=== PATIENT | female | born 1990 | race African-American/Black ===

== ENCOUNTER 2018-05-25 14:32 | Emergency (ER) | payer MEDICAID, OTHER ==
--- NOTE | 2018-05-25 15:53 | EDPHYS ---
Physician Documentation [facility] Name: Mackenzie Jordan Age: 28 yrs Sex: Female : 1990 Arrival Date: 05/25/2018 Time: 14:37 Bed 12 Private MD: ED Physician Massimo Samuels HPI: 05/25 15:54 This 28 yrs old Black Female presents to ER via Ambulatory with complaints of Foreign kb Body In Throat. 15:57 The patient or guardian reports the patient has a suspected foreign body, of the kb throat. The reported likely foreign body is an insect. Onset: The symptoms/episode began/occurred 3 day(s) ago. Current symptoms: foreign body sensation. Treatment Prior to Arrival: tried to flush. The patient has not experienced similar symptoms in the past. The patient has not recently seen a physician. Pt states she was drinking water 3 days ago and swallowed a bug. States she still feels it in her throat. States she did a finger sweep and scratched the back so she is having pain with swallowing, but is able to tolerate PO intake. Historical: - Allergies: 14:54 No Known Allergies; hb - Home Meds: 14:54 None [Active]; hb - PMHx: 14:54 None; hb - PSHx: 14:54 ; hb - Immunization history:: Adult Immunizations up to date. - Social history:: Smoking status: Patient/guardian denies using tobacco. - Ebola Screening: : No symptoms or risks identified at this time. ROS: 15:54 Constitutional: Negative for fever, chills, and weight loss, Neck: Negative for injury, kb pain, and swelling, Cardiovascular: Negative for chest pain, palpitations, and edema, Respiratory: Negative for shortness of breath, cough, wheezing, and pleuritic chest pain, Abdomen/GI: Negative for abdominal pain, nausea, vomiting, diarrhea, and constipation, MS/Extremity: Negative for injury and deformity, Skin: Negative for injury, rash, and discoloration, Neuro: Negative for headache, weakness, numbness, tingling, and seizure. 15:54 ENT: Positive for foreign body sensation. Exam: 15:54 Constitutional: This is a well developed, well nourished patient who is awake, alert, kb and in no acute distress. Head/Face: Normocephalic, atraumatic. ENT: Nares patent. No nasal discharge, no septal abnormalities noted. Tympanic membranes are normal and external auditory canals are clear. Oropharynx with no redness, swelling, or masses, exudates, or evidence of obstruction, uvula midline. Mucous membranes moist. Neck: Trachea midline, no thyromegaly or masses palpated, and no cervical lymphadenopathy. Supple, full range of motion without nuchal rigidity, or vertebral point tenderness. No Meningismus. Chest/axilla: Normal chest wall appearance and motion. Nontender with no deformity. No lesions are appreciated. Cardiovascular: Regular rate and rhythm with a normal S1 and S2. No gallops, murmurs, or rubs. Normal PMI, no JVD. No pulse deficits. Respiratory: Lungs have equal breath sounds bilaterally, clear to auscultation and percussion. No rales, rhonchi or wheezes noted. No increased work of breathing, no retractions or nasal flaring. Abdomen/GI: Soft, non-tender, with normal bowel sounds. No distension or tympany. No guarding or rebound. No evidence of tenderness throughout. Back: No spinal tenderness. No costovertebral tenderness. Full range of motion. Skin: Warm, dry with normal turgor. Normal color with no rashes, no lesions, and no evidence of cellulitis. MS/ Extremity: Pulses equal, no cyanosis. Neurovascular intact. Full, normal range of motion. Neuro: Awake and alert, GCS 15, oriented to person, place, time, and situation. Cranial nerves II-XII grossly intact. Motor strength 5/5 in all extremities. Sensory grossly intact. Cerebellar exam normal. Normal gait. Vital Signs: 14:53 BP 137 / 106; Pulse 100; Resp 16; Temp 98.1; Pulse Ox 98% on R/A; Weight 47.63 kg (R); hb Height 4 ft. 10 in. (147.32 cm); Pain 10/10; 14:53 Body Mass Index 21.95 (47.63 kg, 147.32 cm) hb MDM: 15:32 Patient medically screened. kb 15:53 Data reviewed: vital signs, nurses notes. Data interpreted: Pulse oximetry: on room air kb is 98 %. Interpretation: normal. 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 Administered Medications: No medications were administered Disposition: 16:07 Co-signature as Attending Physician, Massimo Samuels MD I agree with the assessment and kdr plan of care. Disposition: 05/25/18 15:53 Discharged to Home. Impression: Foreign body in esophagus. - Condition is Stable. - Discharge Instructions: Swallowed Foreign Body, Adult, [id number]. - Medication Reconciliation Form, Thank You Letter, Antibiotic Education, Prescription Opioid Use form. - Follow up: Emergency Department; When: As needed; Reason: Worsening of condition. Follow up: Private Physician; When: 2 - 3 days; Reason: Recheck today's complaints, Continuance of care, Re-evaluation by your physician. Signatures: Connie Rubi, IDENTIFIER HORSE-C IDENTIFIER HORSE-Melvinb Massimo Samuels MD MD [facility] Jody Bettencourt RN RN hb Corrections: (The following items were deleted from the chart) 16:04 15:53 05/25/2018 15:53 Discharged to Home. Impression: Foreign body in esophagus. hb Condition is Stable. Forms are Medication Reconciliation Form, Thank You Letter, Antibiotic Education, Prescription Opioid Use. Follow up: Emergency Department; When: As needed; Reason: Worsening of condition. Follow up: Private Physician; When: 2 - 3 days; Reason: Recheck today's complaints, Continuance of care, Re-evaluation by your physician. kb
--- NOTE | 2018-05-25 15:53 | ER ---
Nurse's Notes [facility] Name: Mackenzie Jordan Age: 28 yrs Sex: Female : 1990 Arrival Date: 05/25/2018 Time: 14:37 Bed 12 Private MD: Diagnosis: Foreign body in esophagus Presentation: 05/25 14:52 Presenting complaint: Patient states: "I felt a bug fly into my throat a few days ago, hb I tried to sweep it out but I can't get to it.". Transition of care: patient was not received from another setting of care. Onset of symptoms was May 23, 2018. Risk Assessment: Do you want to hurt yourself or someone else? Patient reports no desire to harm self or others. Care prior to arrival: None. 14:52 Method Of Arrival: Ambulatory 14:52 Acuity: TREY 3 hb 16:01 Initial Sepsis Screen: Does the patient meet any 2 criteria? No. Patient's initial hb sepsis screen is negative. Does the patient have a suspected source of infection? No. Patient's initial sepsis screen is negative. Historical: - Allergies: 14:54 No Known Allergies; hb - Home Meds: 14:54 None [Active]; hb - PMHx: 14:54 None; hb - PSHx: 14:54 ; hb - Immunization history:: Adult Immunizations up to date. - Social history:: Smoking status: Patient/guardian denies using tobacco. - Ebola Screening: : No symptoms or risks identified at this time. Screenin:55 Abuse screen: Denies threats or abuse. Denies injuries from another. Nutritional hb screening: No deficits noted. Tuberculosis screening: No symptoms or risk factors identified. Fall Risk None identified. Assessment: 14:55 General: Appears in no apparent distress. Behavior is calm, cooperative. Pain: Pain hb currently is 10 out of 10 on a pain scale. Neuro: Level of Consciousness is awake, alert, obeys commands, Oriented to person, place, time, situation. Cardiovascular: Capillary refill < 3 seconds Patient's skin is warm and dry. Respiratory: Airway is patent Respiratory effort is even, unlabored, Respiratory pattern is regular, symmetrical, Breath sounds are clear bilaterally. GI: No signs and/or symptoms were reported involving the gastrointestinal system. : No signs and/or symptoms were reported regarding the genitourinary system. EENT: No signs and/or symptoms were reported regarding the EENT system. Derm: Skin is intact, is healthy with good turgor. Musculoskeletal: No signs and/or symptoms reported regarding the musculoskeletal system. Vital Signs: 14:53 BP 137 / 106; Pulse 100; Resp 16; Temp 98.1; Pulse Ox 98% on R/A; Weight 47.63 kg (R); hb Height 4 ft. 10 in. (147.32 cm); Pain 10/10; 14:53 Body Mass Index 21.95 (47.63 kg, 147.32 cm) hb ED Course: 14:37 Patient arrived in ED. mr 14:53 Triage completed. hb 14:54 Arm band placed on. hb 14:55 Patient has correct armband on for positive identification. Call light in reach. hb 15:23 Connie Rub[facility]-C [facility]. kb 15:23 Massimo Samuels MD is Attending Physician. kb 16:00 No provider procedures requiring assistance completed. Patient did not have IV access hb during this emergency room visit. Administered Medications: No medications were administered Outcome: 15:53 Discharge ordered by . kb 16:00 Discharged to home ambulatory. hb 16:00 Condition: stable 16:00 Discharge instructions given to patient, Instructed on discharge instructions, follow up and referral plans. Demonstrated understanding of instructions, follow-up care. 16:04 Patient left the ED. hb Signatures: Connie Rubi FNP-C FNP-Ckb Riverted Patricia Jody Bettencourt RN RN hb Corrections: (The following items were deleted from the chart) 15:59 14:53 BP 137 / 106; Pulse 100bpm; Resp 16bpm; Pulse Ox 98.4%; Temp 98.1F; 47.63 kg hb Reported; Height 4 ft. 10 in.; BMI: 21.9; Pain 10/10; hb
== END 2018-05-25 16:04 | disposition home or self-care (01) ==
LOC: ER 14:32
DX: T18.108A Unspecified foreign body in esophagus causing other injury, initial encounter (principal)
CPT/HCPCS: 99281

== ENCOUNTER 2018-11-17 11:10 | Emergency (ER) | payer MEDICAID ==
--- OUTSIDE RECORDS SUMMARY | 2018-11-17 11:13 | XMS REPORT ---
:1990 [facility] [address] [place] [address] Care Team Providers Name Role Phone Unavailable Unavailable Unavailable Problems This patient has no known problems. Allergies, Adverse Reactions, Alerts This patient has no known allergies or adverse reactions. Medications This patient has no known medications.
[2018-11-17 12:21] LABS: Urine Blood NEGATIVE (NEG); Urine Glucose NEGATIVE (NEG); Urine Protein 1+ (NEG); Urine pH 6.5 (5.0-7.0)
[2018-11-17 12:25] LABS: Absolute Lymphocytes (CBC) 2.1 K/uL (0.7-4.9); Basophils % 0.4 % (0-1.3); Hematocrit 33.2 % (36.0-45.0); Lymphocytes % 27.3 % (15.3-44.8); MPV 8.8 fL (7.6-11.3); RBC Red Blood Cell Count 3.37 M/uL (3.86-4.86)
[2018-11-17 12:27] LABS: Protime INR 0.99
[2018-11-17 12:43] LABS: ALT/SGPT 16 U/L (12-78); AST/SGOT 15 U/L (15-37); Alkaline Phosphatase 83 U/L (45-117); BUN Blood Urea Nitrogen 5 mg/dL (7-18); Bicarbonate 23 mmol/L (21-32); Bilirubin Direct < 0.1 mg/dL (0-0.2); Bilirubin Total 0.2 mg/dL (0.2-1.0); Glucose Level 84 mg/dL (74-106); NT PRO-BNP 44 pg/mL (<125); Potassium 3.7 mmol/L (3.5-5.1); Protein, Total 7.4 g/dL (6.4-8.2); Sodium Level 136 mmol/L (136-145); Troponin (Emerg Dept Use Only) < 0.02 ng/mL (0.0-0.045)
--- NOTE | 2018-11-17 13:20 | ER ---
Nurse's Notes [facility] Name: Mackenzie Jordan Age: 28 yrs Sex: Female : 1990 Arrival Date: 11/17/2018 Time: 11:12 Bed 18 Private MD: Diagnosis: Palpitations Presentation: 11/17 11:21 Presenting complaint: Patient states: "I woke up and I was trying to sneak a cigarette aj1 and after that I started feeling funny, like weird. My heart was racing, I felt hot." Reports that symptoms started approximately 1 hour ago. Patient reports that she is 7 months , denies abdominal pain, denies vaginal bleeding. Transition of care: patient was not received from another setting of care. Onset of symptoms was November 17, 2018 at 10:20. Risk Assessment: Do you want to hurt yourself or someone else? Patient reports no desire to harm self or others. Initial Sepsis Screen: Does the patient meet any 2 criteria? No. Patient's initial sepsis screen is negative. Does the patient have a suspected source of infection? No. Patient's initial sepsis screen is negative. Care prior to arrival: None. 11:21 Method Of Arrival: Ambulatory aj1 11:21 Acuity: TREY 3 aj1 Triage Assessment: 11:22 General: Appears in no apparent distress. comfortable, Behavior is calm, cooperative, aj1 appropriate for age. Pain: Denies pain. Neuro: Level of Consciousness is awake, alert, obeys commands, Oriented to person, place, time, situation. Cardiovascular: Patient's skin is warm and dry. Respiratory: Airway is patent Respiratory effort is even, unlabored, Respiratory pattern is regular, symmetrical. 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 - Social history:: Smoking status: Patient uses tobacco products, denies chronic smoking, but will smoke occasionally. - Ebola Screening: : Patient denies travel to an Ebola-affected area in the 21 days before illness onset. Screenin:50 Abuse screen: Denies threats or abuse. Nutritional screening: No deficits noted. em Tuberculosis screening: No symptoms or risk factors identified. Fall Risk None identified. Assessment: 11:50 General: Appears in no apparent distress. comfortable, Behavior is calm, cooperative, em Denies fever, reports smoking several cigarettes a day and today smoked one that made her have palpitation and feel dizzy. Pain: Denies pain. Neuro: Level of Consciousness is awake, alert, obeys commands, Oriented to person, place, time, situation, Moves all extremities. Speech is normal. Cardiovascular: Reports palpitations, Denies chest pain, shortness of breath, Capillary refill < 3 seconds Patient's skin is warm and dry. Respiratory: Airway is patent Respiratory effort is even, unlabored, Respiratory pattern is regular, symmetrical, Breath sounds are clear bilaterally. GI: Patient currently denies nausea, vomiting. : Denies burning with urination, discharge, vaginal bleeding. Derm: Skin is intact, is healthy with good turgor, Skin is pink, warm \\T\\ dry. Musculoskeletal: Capillary refill < 3 seconds, Range of motion: intact in all extremities. 11:50 Reassessment: I agree with assessment completed by EVERARDO Pierson aa5 12:45 Reassessment: Entered patient's room to do heart tones. Patient states "I don't aj1 know why yall are trying to do all this. I told you its not the baby" Explained procedure to patient, that it is quick and painless and lets us check on her baby. Patient refused heart tones at this time. Notified KORI Arriola. 13:53 Reassessment: Patient appears in no apparent distress at this time. Patient and/or em family updated on plan of care and expected duration. Pain level reassessed. Patient is alert, oriented x 3, equal unlabored respirations, skin warm/dry/pink. Patient denies pain at this time. Patient states feeling better. Patient states symptoms have improved. Vital Signs: 11:22 BP 131 / 84; Pulse 86; Resp 18; Temp 98.3; Pulse Ox 100% on R/A; Weight 52.16 kg (R); aj1 Height 4 ft. 11 in. (149.86 cm) (R); Pain 0/10; 12:45 BP 124 / 78; Pulse 74; Resp 16; Pulse Ox 99% on R/A; em 11:22 Body Mass Index 23.23 (52.16 kg, 149.86 cm) 1 ED Course: 11:12 Patient arrived in ED. as 11:22 Triage completed. aj1 11:35 Dwight Clark LVN is Primary Nurse. em 11:39 Daryl Hill PA is PHCP. [facility] 11:39 Franklin Mejia MD is Attending Physician. m 11:45 Patient has correct armband on for positive identification. Bed in low position. Call em light in reach. Adult w/ patient. panel monitor on. Pulse ox on. NIBP on. 13:05 XRAY Chest (1 view) In Process Unspecified. EDMS 13:46 No provider procedures requiring assistance completed. IV discontinued, intact, em bleeding controlled, No redness/swelling at site. Pressure dressing applied. Administered Medications: No medications were administered Outcome: 13:19 Discharge ordered by MD. [facility] 13:56 Discharged to home ambulatory, with family. em 13:56 Condition: good 13:56 Discharge instructions given to patient, family, Instructed on discharge instructions, follow up and referral plans. Demonstrated understanding of instructions, follow-up care. 13:57 Patient left the ED. em Signatures: Dispatcher [employer] EDMS aJyleen Mcintosh, RN RN aj1 Daryl Hill PA PA [facility] Dwight Clark LVN NATIONAL ACCOUNTS RECRUITER em Aliyah Marsh Audri, RN RN aa5 Corrections: (The following items were deleted from the chart) 11:24 11:21 Presenting complaint: Patient states: "I woke up and I was trying to sneak a aj1 cigarette and after that I started feeling funny, like weird. My heart was racing, I felt hot." Reports that symptoms started approximately 1 hour ago aj1
--- NOTE | 2018-11-17 13:21 | EDPHYS ---
Physician Documentation [facility] Name: Mackenzie Jordan Age: 28 yrs Sex: Female : 1990 Arrival Date: 11/17/2018 Time: 11:12 Bed 18 Private MD: ED Physician Franklin Mejia HPI: 11/17 11:40 This 28 yrs old Black Female presents to ER via Ambulatory with complaints of jmm Palpitations, Dizziness. 11:40 The patient presents with a history of heart racing. Onset: The symptoms/episode jmm began/occurred acutely, just prior to arrival. Duration: The patient or guardian reports a single episode, that is now resolved. Modifying factors: The symptoms are aggravated by The symptoms are alleviated by nothing. This is a female with no chronic medical conditions currently 7 mo IUP that presents to the ED with complaints of palpitations and weakness beginning earlier today after smoking a cigarrette. Patient denies fever, denies chest pain. Denies abdominal pain, denies vaginal bleeding, denies vaginal discharge. . 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 - Social history:: Smoking status: Patient uses tobacco products, denies chronic smoking, but will smoke occasionally. - Ebola Screening: : Patient denies travel to an Ebola-affected area in the 21 days before illness onset. ROS: 11:40 Constitutional: Negative for fever, chills, and weight loss. jmm 11:40 Respiratory: Negative for shortness of breath, cough, wheezing, and pleuritic chest pain, Abdomen/GI: Negative for abdominal pain, nausea, vomiting, diarrhea, and constipation. 11:40 Cardiovascular: Positive for palpitations. 11:40 Neuro: Positive for dizziness, weakness. 11:40 All other systems are negative. Exam: 11:40 Constitutional: This is a well developed, well nourished patient who is awake, alert, jmm and in no acute distress. Head/Face: atraumatic. Eyes: EOMI, no conjunctival erythema appreciated ENT: Moist Mucus Membranes Neck: Trachea midline, Supple Chest/axilla: Normal chest wall appearance and motion. 11:40 Abdomen/GI: Non distended, soft Back: Normal ROM Skin: General appearance color normal MS/ Extremity: Moves all extremities, no obvious deformities appreciated, no edema noted to the lower extremities Neuro: Awake and alert, normal gait Psych: Behavior is normal, Mood is normal, Patient is cooperative and pleasant 11:40 Cardiovascular: Rate: normal, Rhythm: regular, Pulses: no pulse deficits are appreciated. 11:40 Respiratory: the patient does not display signs of respiratory distress, Respirations: normal, Breath sounds: are clear throughout. 11:40 Musculoskeletal/extremity: ROM: intact in all extremities, DVT Exam: no pain, no swelling, no tenderness, negative Homans' sign noted on exam, no appreciated bluish discoloration, no erythema, no increased warmth. Vital Signs: 11:22 BP 131 / 84; Pulse 86; Resp 18; Temp 98.3; Pulse Ox 100% on R/A; Weight 52.16 kg (R); aj1 Height 4 ft. 11 in. (149.86 cm) (R); Pain 0/10; 12:45 BP 124 / 78; Pulse 74; Resp 16; Pulse Ox 99% on R/A; em 11:22 Body Mass Index 23.23 (52.16 kg, 149.86 cm) aj1 MDM: 11:40 Patient medically screened. lorena 13:19 Data reviewed: vital signs, nurses notes. Counseling: I had a detailed discussion with jmm the patient and/or guardian regarding: the historical points, exam findings, and any diagnostic results supporting the discharge/admit diagnosis, the need for outpatient follow up, to return to the emergency department if symptoms worsen or persist or if there are any questions or concerns that arise at home. 13:19 ED course: Patient is alert and non toxic in appearance. VS normal. I do not suspect PE jmm or DVT. Labs unremarkable. Bedside US revealed movement. Patient advised to follow up with OB for reevaluation and otherwise given strict return precautions. Patient understood and agrees with the plan of care. . 11/17 11:48 Order name: Urine Dipstick--Ancillary (enter results); Complete Time: 12:44 eb 11/17 11:48 Order name: Urine --Ancillary (enter results); Complete Time: 12:44 11/17 11:53 Order name: Basic Metabolic Panel; Complete Time: 12:44 [facility] 11/17 11:53 Order name: CBC with Diff; Complete Time: 12:44 [facility] 11/17 11:53 Order name: LFT's; Complete Time: 12:44 [facility] 11/17 11:53 Order name: Magnesium; Complete Time: 12:44 [facility] 11/17 11:53 Order name: NT PRO-BNP; Complete Time: 12:44 [facility] 11/17 11:53 Order name: PT-INR; Complete Time: 12:44 [facility] 11/17 11:53 Order name: Troponin (emerg Dept Use Only); Complete Time: 12:44 [facility] 11/17 11:53 Order name: XRAY Chest (1 view); Complete Time: 13:26 [facility] 11/17 11:53 Order name: EKG; Complete Time: 11:54 [facility] 11/17 11:53 Order name: Cardiac monitoring; Complete Time: 12:50 [facility] 11/17 11:53 Order name: EKG - Nurse/Tech; Complete Time: 12:50 [facility] 11/17 11:53 Order name: IV Saline Lock; Complete Time: 12:50 [facility] 11/17 11:53 Order name: Labs collected and sent; Complete Time: 12:50 [facility] 11/17 11:53 Order name: O2 Per Protocol; Complete Time: 12:50 [facility] 11/17 11:53 Order name: O2 Sat Monitoring; Complete Time: 12:50 [facility] Administered Medications: No medications were administered Disposition: 11/18 11:20 Co-signature as Attending Physician, Franklin Mejia MD I agree with the assessment and doctors hospital plan of care. Disposition: 11/17/18 13:19 Discharged to Home. Impression: Palpitations. - Condition is Stable. - Discharge Instructions: Palpitations. - Medication Reconciliation Form, Thank You Letter, Antibiotic Education, Prescription Opioid Use form. - Follow up: Private Physician; When: 2 - 3 days; Reason: Recheck today's complaints, Continuance of care, Re-evaluation by your physician. Signatures: Dispatcher [facility] Jayleen Kennedy RN RN ajFranklin Aquino MD MD cha Mickail, Joel, PA PA Dwight Valera, KENNEL HELPER KENNEL HELPER em Corrections: (The following items were deleted from the chart) 11/17 12:49 11:58 FHT's ordered. aneta aj1 13:57 13:19 11/17/2018 13:19 Discharged to Home. Impression: Palpitations. Condition is em Stable. Forms are Medication Reconciliation Form, Thank You Letter, Antibiotic Education, Prescription Opioid Use. Follow up: Private Physician; When: 2 - 3 days; Reason: Recheck today's complaints, Continuance of care, Re-evaluation by your physician. aneta
--- NOTE | 2018-11-17 13:23 | RAD REPORT ---
EXAM DESCRIPTION: El Single View11/17/2018 1:04 pm CLINICAL HISTORY: Palpitations COMPARISON: none FINDINGS: The lungs appear clear of acute infiltrate. The heart is normal size IMPRESSION: No acute abnormalities displayed
--- NOTE | 2018-11-18 06:30 | EKG ---
Test Date: 2018-11-17 Test Time: 12:08:11 Retail Assistant: ANA MEASUREMENT RESULTS: Intervals: Rate: 85 [place]: 148 QRSD: 72 QT: 356 QTc: 423 Luckey: P: 36 [place]: 148 QRS: 32 T: 25 INTERPRETIVE STATEMENTS: Normal sinus rhythm Normal ECG No previous ECG available for comparison Electronically Signed On 11-18-18 06:28:57 CDT by Favian Bravo
== END 2018-11-17 13:57 | disposition home or self-care (01) ==
LOC: ER 11:10
DX: O26.892 Other specified pregnancy related conditions, second trimester (principal); R00.2 Palpitations; O99.332 Smoking (tobacco) complicating pregnancy, second trimester; Z3A.28 28 weeks gestation of pregnancy
CPT/HCPCS: 36415; 71045; 80048; 80076; 81003; 81025; 83735; 83880; 84484; 85025; 85610; 93005; 99284

== ENCOUNTER 2019-01-21 02:58 | Inpatient (IN) | payer MEDICAID, OTHER ==
[2019-01-21] MEDS ORDERED: Ringers Lactate 1,000 ML IV PRN (04:22)
[2019-01-21] MEDS ORDERED: NA CIT/CITRIC AC 30 ML ORAL UDC PO ONE ×2 (04:51→05:06)
[2019-01-21] MEDS ORDERED: FAMOTIDINE 20 MG/2 ML VIAL IV ONE ×3 (04:53→05:07)
[2019-01-21] MEDS ORDERED: METOCLOPRAMIDE 10 MG/2mL INJ IV ONE (04:54)
[2019-01-21 04:56] VITALS: BMI 25.2
[2019-01-21] MEDS ORDERED: Ringers Lactate 1,000 ML IV SCH (05:00)
[2019-01-21] MEDS ORDERED: CEFAZOLIN 2 GM in NA CHLORIDE 0.9% 100 ML IVPB SCH ×2 (05:00→06:00)
[2019-01-21 05:04] LABS: Urine Appearance CLOUDY; Urine Bilirubin NEGATIVE (NEG); Urine Blood 3+ (NEG); Urine Color YELLOW; Urine Glucose NEGATIVE (NEG); Urine Protein 1+ (NEG); Urine pH 6.5 (5.0-7.0)
[2019-01-21 05:05] LABS: Basophils % 0.3 % (0-1.3); Hematocrit 32.5 % (36.0-45.0); Lymphocytes % 18.8 % (15.3-44.8); RBC Red Blood Cell Count 3.35 M/uL (3.86-4.86)
[2019-01-21 05:06] LABS: Urine Microscopic Reflex ORDER UMIC
[2019-01-21] MEDS ORDERED: CEFAZOLIN/SWI 2gm 2 GM/20 ML SYR ONE (05:06)
[2019-01-21] MEDS ORDERED: NA CIT/CITRIC AC 30 ML ORAL UDC ONE (05:06)
[2019-01-21] MEDS ORDERED: METOCLOPRAMIDE 10 MG/2mL INJ ONE (05:06)
[2019-01-21] MEDS ORDERED: MORPHINE SULFATE/PF 1 MG/ML (10 ML AMP) ONE (05:17)
[2019-01-21] MEDS ORDERED: FENTANYL CITR 250 MCG/5 ML ONE (05:17)
[2019-01-21 05:28] LABS: Urine Bacteria >50 /HPF (<20); Urine Culture Reflex Order REFLEXED; Urine Mucus LIGHT /HPF (NONE SEEN); Urine RBC 20-50 /HPF (NONE SEEN)
[2019-01-21] MEDS ORDERED: OXYTOCIN 10 UNIT/ML ML IV ONE (05:44)
[2019-01-21] MEDS ORDERED: ONDANSETRON 4 MG/2 ML VIAL ONE (05:50)
[2019-01-21] MEDS ORDERED: METOCLOPRAMIDE 10 MG/2mL INJ IV SCH (06:00)
[2019-01-21] MEDS ORDERED: KETOROLAC 30 MG/ML INJ IV PRN (06:27)
[2019-01-21] MEDS ORDERED: ONDANSETRON 4 MG (ODT) TAB PO PRN (06:27)
[2019-01-21] MEDS ORDERED: Oxycodone HCl/Acetaminophen 1 TAB TAB PO PRN (06:27)
[2019-01-21] MEDS ORDERED: METHYLERGONOVINE 0.2MG/ML AMP IM PRN (06:27)
[2019-01-21] MEDS ORDERED: CARBOPROST TROME 250 MCG/ML IM PRN (06:27)
[2019-01-21] MEDS ORDERED: METHYLERGONOVINE 0.2 MG TAB PO PRN (06:27)
--- NOTE | 2019-01-21 06:32 | P.BOP ---
Preoperative diagnosis: 36wk , prior c-sectionX2, active labor Postoperative diagnosis: same, delivery viable female infant Primary procedure: City Planning Aide: Yvette Richards Estimated blood loss: 800ml Specimen: placenta Anesthesia: Spinal Complications: None Drain(s): Urinary catheter Transferred to: Other (277) Condition: Good
[2019-01-21] MEDS ORDERED: OXYTOCIN/LR 20 UNIT/1,000 ML BAG IV SCH (07:00)
[2019-01-21 07:04] VITALS: O2SAT 98
[2019-01-21] MEDS ORDERED: LIDOCAINE 1.5% W/EPI AMP 5 ML ONE (10:10)
[2019-01-21] MEDS ORDERED: BUPIVACAINE 0.75% (PF) 2 ML SP ONE (10:10)
[2019-01-22] MEDS ORDERED: DIPHENHYDRAMINE 25 MG TAB/CAP PO PRN (00:16)
[2019-01-22 01:28] LABS: RPR (Rapid Plasma Reagin) NON-REACT (NON-REACT)
--- NOTE | 2019-01-22 02:52 | OP ---
Surgeon: Marcel Akers MD Sheet Rock Hanger: Dr. iRchards. Anesthesiologist: Dr. Agustin Marie. Preoperative Diagnoses: 36 week , active labor, prior section x2 with refusal for attempted vaginal after . Procedure: Spinal block anesthesia, repeat section, delivery of viable female infant. Postoperative Diagnoses: 36 week , active labor, prior section x2 with refusal for attempted vaginal after . Description Of Procedure: After the patient had received 2 g of Ancef for antibiotic prophylaxis wit h SCDs in place and Mercado catheter in place and this spinal block anesthesia was obtained, patient wa s prepped and draped in usual fashion for abdominal surgery. A Pfannenstiel skin incision made, zavala ied down to the fascia. The fascia was incised with a combination of sharp and blunt dissection. It was from the underlying rectus muscles. These were divided in the midline. Peritoneum id entified and incised. The bladder flap developed. A low-transverse uterine incision was made. A 7 pounds 4 ounces female , 9 and 9 was delivered in vertex presentation. The cord was clam ped, cut, and the placed in a warmer. Cord blood was obtained. The placenta was manually rem fina. The uterus was then exteriorized. The uterus was closed with 2 layers of 0 Vicryl suture in a running nonlocking fashion. The second layer used to imbricate the first. The uterus was returned to peritoneal cavity which was cleaned of amniotic fluid, debris, and blood clot. The rectus muscles were approximated in midline with simple sutures of 0 Vicryl. The fascia was closed with running munoz tures of #1 Vicryl from either margin to the middle. Subcutaneous tissue approximated with a running sutures, subdermal suture of 3-0 Vicryl, and subcuticular suture of 4-0 Monocryl. The patient was t aken to recovery room in satisfactory condition. Counts: Sponge and needle counts were correct x2. SAÚL/YOGESH Voice ID: [id number] Report ID: [id number]
[2019-01-22 04:59] LABS: Absolute Lymphocytes (CBC) 2.1 K/uL (0.7-4.9); Basophils % 0.2 % (0-1.3); Hematocrit 30.9 % (36.0-45.0); Lymphocytes % 16.8 % (15.3-44.8); RBC Red Blood Cell Count 3.21 M/uL (3.86-4.86)
--- NOTE | 2019-01-22 07:01 | P.PN ---
Date of Service: 01/22/19 No complaints, wants to shower, has been up O-Afeb, vs stable, h/h noted, abdomen soft, bandage dry A-Satisfactory P-D/c iv, choi, ambulate, advance diet
--- NOTE | 2019-01-22 09:29 | PREOPHP ---
Date of Admission: 01/21/2019 History Of Present Illness: Ms. Jordan is a 28-year-old black female, 4, para 3-0-0-3, who has been seen through [facility] for care, presents to our facility with complaints of con tractions. She is approximately 36 weeks gestation by our history. has been complicated b y her being told she is anemic and 2 prior sections with subsequent . Past Medical History: Includes 2 prior sections of unknown cause, then vaginal delivery thr gh [facility] apparently because of very rapid labor. She has no other hospitalizations, accidents, illn esses, injuries. Medications: She is on no medications on a regular basis. Habits: Apparently she does smoke. Family History: Noncontributory. Review of Systems: She reports no recent cough, cold, fevers, or chills. No recent nausea or vomiting. She denies any breast lumps or knots. Infant has been active. She denies any bowel or bladder issues. Physical Examination: General: Reveals a black female, in no apparent distress. Neck: Supple without adenopathy or thyromegaly. Lungs: Clear. Cardiac: Regular rate and rhythm without murmurs. Breasts: Not examined. Abdomen: Estimated weight 6 pounds. Pelvic: Cervix noted to be 5 cm on nurse's exam. Extremities: No cyanosis, clubbing, or edema. Plan: We will proceed with repeat section since patient declines . SAÚL/YOGESH Voice ID: [id number]
--- NOTE | 2019-01-22 09:41 | PREOPHP ---
Date of Admission: 01/21/2019 History Of Present Illness: Ms. Moreira is a 28-year-old female, 2, para 1- 0-0-1, at approximately 39 weeks gestation. She is admitted for elective induction of labor secondar y to term with favorable cervix. She has been followed by me during this without complications other than history of mild anemia and mild shoulder dystocia with delivery of her firs t infant. Past Medical History: Please see record. Family History: Please see record. Review of Systems: She reports no recent cough, cold, fever, or chills. No recent nausea, vomiting. She denies any rodri ast lumps or knots. She denies any bowel or bladder issues. Baby has been active. Physical Examination: General: Reveals a pleasant female, in no apparent distress. Neck: Supple without adenopathy or thyromegaly. Lungs: Clear. Cardiac: Regular rate and rhythm without murmurs. Breasts: Not examined. Abdomen: Estimated weight of 7+ to 8 pounds. Pelvic; cervix 1+ cm, 60% effaced, vertex presen tation at 0 station. Extremities: No cyanosis, clubbing, or edema. Impression: Term , favorable cervix. Plan: Patient will be admitted for induction of labor. We will watch for CPD. SAÚL/YOGESH Voice ID: [id number]
[2019-01-22] MEDS: Oxycodone HCl/Acetaminophen 1 TAB TAB PO PRN ×3 (13:10→22:48)
[2019-01-23] MEDS ORDERED: IBUPROFEN 400 MG TAB PO PRN (02:34)
[2019-01-23] MEDS: Oxycodone HCl/Acetaminophen 1 TAB TAB PO PRN (04:33)
[2019-01-23 08:33] VITALS: BP 138/82; TEMP 97.6
--- NOTE | 2019-01-23 08:48 | DS ---
Final Hospital Discharge Diagnoses: 36 week , delivered, iron deficiency anemia. Complications: None. Procedures: Spinal block anesthesia, repeat section, delivery of viable female infant. Hospital Course: The patient is a 28-year-old black female, 4, para 3-0-0-3 at approximately 36 weeks gestation, admitted with spontaneous rupture of membranes in active labor. She had 2 prior sections, 1 prior vaginal delivery. She refused attempted vaginal delivery and underwent r epeat section with spinal block anesthesia. She delivered a 4 pounds 14 ounces female infan t, 9 and 9. She was dismissed on the second postoperative day, ambulatory, on a select diet wi th routine post , activity restrictions, to be seen back through the [facility] for followu p. She was dismissed with prescription for Tylenol No. 3, #15, for pain relief. Lab work obtained d uring this hospital stay included an admission hemoglobin and hematocrit of 11.2 and 32.5, dismissal 10.9 and 30.9. She is B positive blood type. She was dismissed to continue taking her iron and vitamins. SAÚL/YOGESH Voice ID: [id number] Report ID: [id number]
[2019-01-24 02:27] LABS: HBsAG Nonreactive (Nonreactive)
== END 2019-01-23 09:55 | disposition home or self-care (01) | DRG 788 ==
LOC: L&D 02:58 → 2ND-WC 04:07
PROVIDERS: ADMIT Specialist; ATTEND Specialist
PROC: 10D00Z1 Extraction of Products of Conception, Low, Open Approach (ICD-10-PCS; principal; 2019-01-21 05:00)
DX: O34.211 Maternal care for low transverse scar from previous cesarean delivery (principal); Z3A.36 36 weeks gestation of pregnancy; Z37.0 Single live birth; O99.02 Anemia complicating childbirth; D50.9 Iron deficiency anemia, unspecified
CPT/HCPCS: 36415; 81003; 81015; 85025; 86592; 86850; 86900; 86901; 87086; 87088; 87340; 88307; 99218; G0433; J0690; J2001; J2405; J2590; J2765; J3010

== ENCOUNTER 2019-02-18 16:33 | Emergency (ER) | payer MEDICAID ==
[2019-02-18 17:31] LABS: Absolute Lymphocytes (CBC) 2.4 K/uL (0.7-4.9); Basophils % 0.6 % (0-1.3); Hematocrit 36.4 % (36.0-45.0); MPV 8.7 fL (7.6-11.3); RBC Red Blood Cell Count 3.85 M/uL (3.86-4.86)
[2019-02-18 17:32] LABS: Urine Blood NEGATIVE (NEG); Urine Glucose NEGATIVE (NEG); Urine Protein NEGATIVE (NEG); Urine Specific Gravity 1.025 (1.005-1.030); Urine pH 5.5 (5.0-7.0)
[2019-02-18 17:39] LABS: ALT/SGPT 19 U/L (12-78); AST/SGOT 16 U/L (15-37); Albumin 3.6 g/dL (3.4-5.0); Alkaline Phosphatase 114 U/L (45-117); BUN Blood Urea Nitrogen 9 mg/dL (7-18); Bicarbonate 28 mmol/L (21-32); Bilirubin Direct 0.1 mg/dL (0-0.2); Bilirubin Total 0.3 mg/dL (0.2-1.0); Glucose Level 145 mg/dL (74-106); Potassium 3.3 mmol/L (3.5-5.1); Sodium Level 139 mmol/L (136-145)
--- NOTE | 2019-02-18 17:50 | ER ---
Nurse's Notes [facility] Name: Mackenzie Jordan Age: 28 yrs Sex: Female : 1990 Arrival Date: 02/18/2019 Time: 16:36 Bed 19 Private MD: Diagnosis: Hypertension Presentation: 02/18 16:41 Presenting complaint: Patient states: my doctor told me i have preeclampsia, i gave tw2 jan 21, but they told me to come here. Transition of care: patient was not received from another setting of care. Onset of symptoms was February 18, 2019. Risk Assessment: Do you want to hurt yourself or someone else? Patient reports no desire to harm self or others. Initial Sepsis Screen: Does the patient meet any 2 criteria? No. Patient's initial sepsis screen is negative. Does the patient have a suspected source of infection? No. Patient's initial sepsis screen is negative. Care prior to arrival: None. 16:41 Method Of Arrival: Ambulatory tw2 16:41 Acuity: TREY 3 tw2 Triage Assessment: 16:42 General: Appears in no apparent distress. Behavior is calm, cooperative, appropriate tw2 for age. Pain: Denies pain. 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 - Social history:: Smoking status: Patient uses tobacco products, smokes one-half pack cigarettes per day. - Ebola Screening: : Patient denies travel to an Ebola-affected area in the 21 days before illness onset. - Family history:: pertinent for hypertension. - Hospitalizations: : No recent hospitalization is reported. Screenin:50 Abuse screen: Denies threats or abuse. Nutritional screening: No deficits noted. tw2 Tuberculosis screening: No symptoms or risk factors identified. Fall Risk None identified. Assessment: 17:00 General: Appears in no apparent distress. comfortable, Behavior is calm, cooperative, ca1 appropriate for age. Pain: Denies pain. Neuro: Level of Consciousness is awake, alert, obeys commands, Oriented to person, place, time, situation. Cardiovascular: Heart tones S1 S2 present Capillary refill < 3 seconds Patient's skin is warm and dry. Respiratory: Airway is patent Respiratory effort is even, unlabored, Respiratory pattern is regular, symmetrical, Breath sounds are clear bilaterally. GI: Abdomen is flat, non-distended, Bowel sounds present X 4 quads. Abd is soft and non tender X 4 quads. : No deficits noted. No signs and/or symptoms were reported regarding the genitourinary system. EENT: No deficits noted. No signs and/or symptoms were reported regarding the EENT system. Derm: Skin is intact, is healthy with good turgor, Skin is pink, warm \\T\\ dry. Musculoskeletal: Circulation, motion, and sensation intact. Capillary refill < 3 seconds, Range of motion: intact in all extremities. 17:43 Reassessment: Patient appears in no apparent distress at this time. Patient and/or ca1 family updated on plan of care and expected duration. Pain level reassessed. Patient is alert, oriented x 3, equal unlabored respirations, skin warm/dry/pink. Vital Signs: 16:42 BP 134 / 91; Pulse 87; Resp 18; Temp 98.5(TE); Pulse Ox 100% on R/A; Weight 49.9 kg tw2 (R); Height 4 ft. 10 in. (147.32 cm); Pain 7/10; 17:43 BP 135 / 95; Pulse 72; Resp 15 S; Pulse Ox 100% on R/A; ca1 18:07 BP 139 / 79; Pulse 88; Resp 17 S; Pulse Ox 100% on R/A; ca1 16:42 Body Mass Index 22.99 (49.90 kg, 147.32 cm) tw2 16:42 "just where the csection was" tw2 ED Course: 16:36 Patient arrived in ED. as 16:42 Triage completed. tw2 16:42 Arm band placed on. tw2 16:43 Bed in low position. Call light in reach. tw2 16:44 Michell Caceres, RN is Primary Nurse. ca1 16:44 Chidi Pulido MD is Attending Physician. rn 17:00 Patient has correct armband on for positive identification. Side rails up X 1. Pulse ox ca1 on. NIBP on. Warm blanket given. 17:00 Urine collected: clean catch specimen, clear. 3 17:00 No provider procedures requiring assistance completed. ca1 17:05 Initial lab(s) drawn, by me, sent to lab. Inserted saline lock: 20 gauge in right 3 antecubital area, using aseptic technique. 18:08 IV discontinued, intact, bleeding controlled, No redness/swelling at site. Pressure ca1 dressing applied. Administered Medications: No medications were administered Outcome: 17:49 Discharge ordered by . rn 18:08 Discharged to home ambulatory, with friend. ca1 18:08 Condition: stable 18:08 Discharge instructions given to patient, Instructed on discharge instructions, follow up and referral plans. Demonstrated understanding of instructions, follow-up care. 18:09 Patient left the ED. ca1 Signatures: Aliyah Marsh Roman, MD MD rn Wise, Tara, RN RN 2 Maryjane Waters [facility] Michell Caceres RN RN ca1
--- NOTE | 2019-02-18 17:50 | EDPHYS ---
Physician Documentation [facility] Name: Mackenzie Jordan Age: 28 yrs Sex: Female : 1990 Arrival Date: 02/18/2019 Time: 16:36 Bed 19 Private MD: ED Physician Chidi Pulido HPI: 02/18 17:02 This 28 yrs old Black Female presents to ER via Ambulatory with complaints of High rn Blood Pressure. 17:02 The patient has elevated blood pressure and discovered this at a physician's office. rn Onset: The symptoms/episode began/occurred at an unknown time. Modifying factors:. Severity of symptoms: At its worst the blood pressure was moderate, in the emergency department the blood pressure is improved. The patient has experienced similar episodes in the past. The patient has been recently seen by a physician:. Reports sent by her OB for evaluation of possible pre-eclampsia. Reports had uncomplicated 29 days ago, has been fine, no problems, went to f/u today and BP was elevated. Patient states smokes. Urine sample showed protein. sent here for further w/u. Patient states that has had high blood pressure for sometime, even outside of , never on meds, strong famhx of HTN. Reports high blood pressure with each as well. No seizures. Denies chest pain/sob/abd pain/vomiting/diarrhea/seizure. Patient states feels fine and doesn't know why she is here. Reports has been "smoking hard lately".. 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 tw Historical: - Allergies: 16:43 No Known Drug Allergies; tw2 - Home Meds: 16:43 None [Active]; tw2 - PMHx: 16:43 None; tw2 - PSHx: 16:43 ; tw2 - Immunization history:: Adult Immunizations. - Social history:: Smoking status: Patient uses tobacco products, smokes one-half pack cigarettes per day. - Ebola Screening: : Patient denies travel to an Ebola-affected area in the 21 days before illness onset. - Family history:: pertinent for hypertension. - Hospitalizations: : No recent hospitalization is reported. ROS: 17:02 Constitutional: Negative for fever, chills, and weight loss, Eyes: Negative for injury, rn pain, redness, and discharge, Neck: Negative for injury, pain, and swelling, Cardiovascular: Negative for chest pain, palpitations, and edema, Respiratory: Negative for shortness of breath, cough, wheezing, and pleuritic chest pain, Abdomen/GI: Negative for abdominal pain, nausea, vomiting, diarrhea, and constipation, MS/Extremity: Negative for injury and deformity, Skin: Negative for injury, rash, and discoloration, Neuro: Negative for headache, weakness, numbness, tingling, and seizure. Exam: 17:02 Constitutional: This is a well developed, well nourished patient who is awake, alert, rn and in no acute distress. Head/Face: Normocephalic, atraumatic. Eyes: Pupils equal round and reactive to light, extra-ocular motions intact. Lids and lashes normal. Conjunctiva and sclera are non-icteric and not injected. Cornea within normal limits. Periorbital areas with no swelling, redness, or edema. ENT: MMM Neck: Trachea midline, no thyromegaly or masses palpated, and no cervical lymphadenopathy. Supple, full range of motion without nuchal rigidity, or vertebral point tenderness. No Meningismus. Cardiovascular: Regular rate and rhythm. No pulse deficits. Respiratory: No increased work of breathing, no retractions or nasal flaring. Abdomen/GI: soft, non-tender MS/ Extremity: Pulses equal, no cyanosis. Neurovascular intact. Full, normal range of motion. Equal circumference. Neuro: Awake and alert, GCS 15, oriented to person, place, time, and situation. Cranial nerves II-XII grossly intact. Motor strength 5/5 in all extremities. Sensory grossly intact. Cerebellar exam normal. Normal gait. Vital Signs: 16:42 BP 134 / 91; Pulse 87; Resp 18; Temp 98.5(TE); Pulse Ox 100% on R/A; Weight 49.9 kg tw2 (R); Height 4 ft. 10 in. (147.32 cm); Pain 7/10; 17:43 BP 135 / 95; Pulse 72; Resp 15 S; Pulse Ox 100% on R/A; ca1 18:07 BP 139 / 79; Pulse 88; Resp 17 S; Pulse Ox 100% on R/A; ca1 16:42 Body Mass Index 22.99 (49.90 kg, 147.32 cm) tw2 16:42 "just where the csection was" tw2 MDM: 16:44 Patient medically screened. rn 17:09 ED course: Pt BP here at triage 134/91, asymptomatic, will check LDH/LFTs/CBC/urine. rn Patient states pre-existing HTN outside of gestational HTN, for long time and never medicated. Reports her average BP systolic is 130s/140s. Also smoker. Borderline BP and just past 4 weeks or at 4 weeks for diagnosis of pre-eclampsia.. 17:41 Differential diagnosis: asymptomatic hypertension. Data reviewed: vital signs, nurses rn notes, lab test result(s), and as a result, I will discharge patient. Counseling: I had a detailed discussion with the patient and/or guardian regarding: the historical points, exam findings, and any diagnostic results supporting the discharge/admit diagnosis, lab results, the need for outpatient follow up, to return to the emergency department if symptoms worsen or persist or if there are any questions or concerns that arise at home. Special discussion: I discussed with the patient/guardian in detail that at this point there is no indication for admission to the hospital. It is understood, however, that if the symptoms persist or worsen the patient needs to return immediately for re-evaluation. ED course: Negative for proteinuria, normal lfts/LDH/UA, most likely asymptomatic hypertension and preexisting. Counseled regarding smoking cessation and pcp f/u for general BP management.. 02/18 16:57 Order name: CBC with Diff; Complete Time: 17:40 rn 02/18 16:57 Order name: Basic Metabolic Panel; Complete Time: 17:40 rn 02/18 16:57 Order name: LFT's; Complete Time: 17:40 rn 02/18 16:58 Order name: LDH; Complete Time: 17:40 rn 02/18 17:16 Order name: Urine Dipstick--Ancillary (enter results); Complete Time: 17:35 bd 02/18 17:16 Order name: Urine --Ancillary (enter results); Complete Time: 17:35 bd 02/18 16:57 Order name: Urine Dipstick-Ancillary (obtain specimen); Complete Time: 17:16 rn 02/18 16:57 Order name: IV Start; Complete Time: 17:16 rn Administered Medications: No medications were administered Disposition: 02/18/19 17:49 Discharged to Home. Impression: Hypertension. - Condition is Stable. - Discharge Instructions: Hypertension. - Medication Reconciliation Form, Thank You Letter, Antibiotic Education, Prescription Opioid Use form. - Follow up: Private Physician; When: As needed; Reason: Recheck today's complaints, Re-evaluation by your physician. - Problem is chronic. - Symptoms have improved. Signatures: Dispatcher [employer] EDMS Chidi Pulido MD MD rn Wise, Tara, RN RN tw2 Michell Caceres RN RN ca1 Corrections: (The following items were deleted from the chart) 18:09 17:49 02/18/2019 17:49 Discharged to Home. Impression: Hypertension. Condition is ca1 Stable. Forms are Medication Reconciliation Form, Thank You Letter, Antibiotic Education, Prescription Opioid Use. Follow up: Private Physician; When: As needed; Reason: Recheck today's complaints, Re-evaluation by your physician. Problem is chronic. Symptoms have improved. rn
[2019-02-18 19:10] VITALS: TEMP 98.5; O2SAT 100
[2019-02-18 19:12] VITALS: BP 139/79
== END 2019-02-18 18:09 | disposition home or self-care (01) ==
LOC: ER 16:33
DX: O16.5 Unspecified maternal hypertension, complicating the puerperium (principal); F17.210 Nicotine dependence, cigarettes, uncomplicated
CPT/HCPCS: 36415; 80048; 80076; 81003; 81025; 83615; 85025; 99283